=== PATIENT | male | born 1960 | race Caucasian/White ===

== ENCOUNTER 2018-11-19 05:22 | Inpatient (IN) | payer OTHER ==
[~2018-11-19] VITALS: Ht 182.9 cm; Wt 125.0 kg
[~2018-11-19 05:22] MED LIST: AMOX/K CLAV875 M1 PO; ASPIRIN EC81 MG PO; CIPRODEX1 ML AS; COUMADIN5 MG PO; DIGOXIN0.25 MG PO; HYDROCODONE/ACE1 TA7 PO; LANOXIN0.25 MG PO; LASIX 40 MG40 MG/TAB PO; LISINOPRIL10 MG PO; LOPRESSOR 550 MG/TAB PO; LORTAB 5 OR; LOVASTATIN20 M1 PO; METOPROL TAR25 MG PO; MICRO-K10 ME1 PO; MOTRIN400 MG PO; NAPROXEN250 MG PO; NO MEDS; PENICILLN VK500 MG OR; PERCOCET 5/321 COMBO PO; PERCOCET 5/325M1 TAB PO; ULTRAM50 M1 PO; VICOPROFEN OR; WARFARIN SODIUM5 MG PO; ZESTRIL/PRIN5 MG/TA1 PO; ZPAK PO
[2018-11-19] MEDS ORDERED: AMLODIPINE BESY10 MG PO (06:03)
[2018-11-19] MEDS ORDERED: GLIPIZIDE5 M2 PO (06:04)
[2018-11-19] MEDS ORDERED: LOSARTAN POTASS50 MG PO (06:05)
[2018-11-19] MEDS ORDERED: FLUOXETINE20 MG PO (06:05)
[2018-11-19] MEDS ORDERED: AMITRIPTYLIN25 MG PO (06:06)
[2018-11-19] MEDS ORDERED: ATORVASTATIN CA40 MG PO (06:07)
[2018-11-19] MEDS ORDERED: SG ASA LOW81 M1 PO (06:09)
[2018-11-19 06:11] LABS: HEMATOCRIT 49.5 % (39.0-50.0); HEMOGLOBIN 16.7 g/dl (14.0-18.0); IMMATURE GRANULOCYTES 0.3 % (0.0-5.0); MEAN CELL VOLUME 90.5 fL CALC (80.0-100.0); MEAN CORPUSCULAR HGB 30.5 pG CALC (26.0-32.0); MEAN CORPUSCULAR HGB CONC 33.7 g/L CALC (32.0-36.0); NEUT# 8.79 thou/uL (1.82-7.42); RED BLOOD COUNT 5.47 mill/uL (4.70-6.10); RED CELL DISTRI WIDTH 14.3 % (11.5-15.5)
[2018-11-19 06:11] LABS: URINE BILIRUBIN - DIPSTICK NEGATIVE (NEGATIVE); URINE BLOOD DIPSTICK TRACE-INTACT (NEGATIVE); URINE COLOR YELLOW; URINE GLUCOSE - DIPSTICK 500 mg/dL (NEGATIVE); URINE KETONE NEGATIVE (NEGATIVE); URINE LEUK ESTERASE NEGATIVE (NEGATIVE); URINE NITRITE - DIPSTICK NEGATIVE (Negative); URINE PH 5.5 (4.5-8.0); URINE PROTEIN - DIPSTICK 100 mg/dL (NEG-TRACE); URINE SPECIFIC GRAVITY >=1.030; URINE UROBILINOGEN - DIPSTICK 0.2 E.U./dL (0.2)
[2018-11-19] MEDS ORDERED: MV-ONE PO (06:11)
[2018-11-19 06:19] LABS: URINE BACTERIA FEW hpf; URINE EPITHELIAL CELLS MODERATE EPI/hpf (0-FEW); URINE MUCUS MODERATE hpf (NONE-FEW)
[2018-11-19 06:23] LABS: ALBUMIN 4.1 g/dL (3.2-5.0); AMYLASE 37 u/l (30-110); ANION GAP 17 (6-22 (CALC)); BILIRUBIN, TOTAL 0.7 mg/dL (0.0-1.4); BUN 7 mg/dL (9-20); BUN/CREATININE RATIO 13 (12-20 (CALC)); CARBON DIOXIDE 25 mmol/l (22-30); CHLORIDE 99 mmol/l (95-108); CREATININE 0.5 mg/dL (0.7-1.3); GFR > 60 ML/MIN (>=60 (CALC)); GFR FOR AFR.AMER. > 60 ML/MIN (>=60 (CALC)); LIPASE 89 u/l (23-300); POTASSIUM 3.9 mmol/l (3.5-5.1); SODIUM 136 mmol/l (137-146); TOTAL PROTEIN 7.7 g/dL (6.3-8.2)
[2018-11-19 06:25] LABS: ALKALINE PHOSPHATASE 136 u/l (38-126); SGOT/AST 60 u/l (17-59)
[2018-11-19 09:06] LABS: INTERNATIONAL NORMALIZED RATIO 1.3 RATIO (0.7-1.3)
[2018-11-19 10:05] VITALS: BP 121/81
[2018-11-19 15:11] VITALS: BP 128/80
[2018-11-19 18:49] VITALS: BP 127/31
[2018-11-19 20:50] VITALS: BP 90/50
[2018-11-19 22:10] VITALS: BP 153/84
[2018-11-20] VITALS: BP 144/84
[2018-11-20 04:00] VITALS: BP 119/63
[2018-11-20 07:53] VITALS: BP 135/84
[2018-11-20 11:05] VITALS: BP 101/69
[2018-11-20 12:28] LABS: INTERNATIONAL NORMALIZED RATIO 1.4 RATIO (0.7-1.3); PROTHROMBIN TIME 14.4 SECONDS (9.0-12.5)
[2018-11-20 15:35] VITALS: BP 123/93
[2018-11-20] MEDS ORDERED: WARFARIN7.5 MG PO (15:46)
[2018-11-20 20:27] VITALS: BP 118/74
[2018-11-21] VITALS (7 sets, daily range): BP systolic 86–118; BP diastolic 52–76
[2018-11-21 05:03] LABS: HEMATOCRIT 44.7 % (39.0-50.0); MEAN CELL VOLUME 92.7 fL CALC (80.0-100.0); MEAN CORPUSCULAR HGB 30.5 pG CALC (26.0-32.0); MEAN CORPUSCULAR HGB CONC 32.9 g/L CALC (32.0-36.0); RED BLOOD COUNT 4.82 mill/uL (4.70-6.10); RED CELL DISTRI WIDTH 14.6 % (11.5-15.5)
[2018-11-21 05:12] LABS: HEMOGLOBIN 14.7 g/dl (14.0-18.0)
[2018-11-21 05:21] LABS: INTERNATIONAL NORMALIZED RATIO 1.4 RATIO (0.7-1.3); PROTHROMBIN TIME 14.6 SECONDS (9.0-12.5)
[2018-11-21 05:29] LABS: ALKALINE PHOSPHATASE 115 u/l (38-126); ANION GAP 11 (6-22 (CALC)); BILIRUBIN, TOTAL 0.9 mg/dL (0.0-1.4); BUN 6 mg/dL (9-20); BUN/CREATININE RATIO 9 (12-20 (CALC)); CARBON DIOXIDE 27 mmol/l (22-30); CHLORIDE 101 mmol/l (95-108); CREATININE 0.6 mg/dL (0.7-1.3); GFR > 60 ML/MIN (>=60 (CALC)); GFR FOR AFR.AMER. > 60 ML/MIN (>=60 (CALC)); SGOT/AST 50 u/l (17-59); SODIUM 134 mmol/l (137-146)
[2018-11-21 05:34] LABS: TOTAL PROTEIN 6.1 g/dL (6.3-8.2)
[2018-11-22 04:24] VITALS: BP 104/66
[2018-11-22 05:45] LABS: INTERNATIONAL NORMALIZED RATIO 1.3 RATIO (0.7-1.3); PROTHROMBIN TIME 13.3 SECONDS (9.0-12.5)
[2018-11-22 07:55] VITALS: BP 134/84
[2018-11-22 11:16] VITALS: BP 121/85
== END 2018-11-22 14:10 | DRG 394 ==
LOC: ED 05:22 → ED-I 07:58 → ED 08:12 → MS2 08:13
PROVIDERS: Emergency Medicine; Family Medicine; Nurse Practitioner Family; ADMIT Internal Medicine; ATTEND Internal Medicine
DX: K43.0 Incisional hernia with obstruction, without gangrene (principal); I42.9 Cardiomyopathy, unspecified; E87.2 Acidosis; I48.1 Persistent atrial fibrillation; I11.0 Hypertensive heart disease with heart failure; I50.9 Heart failure, unspecified; E11.65 Type 2 diabetes mellitus with hyperglycemia; J44.9 Chronic obstructive pulmonary disease, unspecified; G47.30 Sleep apnea, unspecified; F17.220 Nicotine dependence, chewing tobacco, uncomplicated; T45.516A Underdosing of anticoagulants, initial encounter; Z91.19 Patient's noncompliance with other medical treatment and regimen; Z90.81 Acquired absence of spleen; Z90.49 Acquired absence of other specified parts of digestive tract; Z99.81 Dependence on supplemental oxygen; Z79.84 Long term (current) use of oral hypoglycemic drugs; Z91.128 Patient's intentional underdosing of medication regimen for other reason; Z79.01 Long term (current) use of anticoagulants
CPT/HCPCS: J1650; Q9967

== ENCOUNTER 2018-12-03 12:17 | Emergency (ER) | payer OTHER ==
[~2018-12-03] VITALS: Ht 182.9 cm; Wt 121.0 kg
[~2018-12-03 12:17] MED LIST changes: +AMITRIPTYLIN25 MG PO; +AMLODIPINE BESY10 MG PO; +ATORVASTATIN CA40 MG PO; +FLUOXETINE20 MG PO; +GLIPIZIDE5 M2 PO; +LOSARTAN POTASS50 MG PO; +MV-ONE PO; +SG ASA LOW81 M1 PO; +WARFARIN7.5 MG PO
[2018-12-03] MEDS ORDERED: ONDANSETRON HCL4 MG PO (13:59)
[2018-12-03] MEDS ORDERED: PERCOCET 5/325M1 TAB PO (13:59)
[2018-12-03] MEDS ORDERED: REGLAN10 MG PO (14:00)
[2018-12-03] MEDS ORDERED: PAIN & FEVER325 MG PO (14:02)
[2018-12-03] MEDS ORDERED: DOCUSATE SOD100 MG PO (14:04)
[2018-12-03] MEDS ORDERED: SENNA-TABS8.6 MG PO (14:05)
[2018-12-03 14:06] LABS: MEAN CELL VOLUME 93.9 fL CALC (80.0-100.0); MEAN CORPUSCULAR HGB 30.4 pG CALC (26.0-32.0); MEAN CORPUSCULAR HGB CONC 32.4 g/L CALC (32.0-36.0); NEUT# 10.17 thou/uL (1.82-7.42); RED BLOOD COUNT 3.78 mill/uL (4.70-6.10); RED CELL DISTRI WIDTH 14.6 % (11.5-15.5)
[2018-12-03] MEDS ORDERED: TRAMADOL HCL50 MG PO (14:06)
[2018-12-03 14:10] LABS: HEMATOCRIT 35.5 % (39.0-50.0); HEMOGLOBIN 11.5 g/dl (14.0-18.0)
[2018-12-03 14:18] LABS: ALBUMIN 3.3 g/dL (3.2-5.0); ALKALINE PHOSPHATASE 120 u/l (38-126); ANION GAP 13 (6-22 (CALC)); BILIRUBIN, TOTAL 0.6 mg/dL (0.0-1.4); BUN 12 mg/dL (9-20); BUN/CREATININE RATIO 19 (12-20 (CALC)); CARBON DIOXIDE 29 mmol/l (22-30); CHLORIDE 100 mmol/l (95-108); CREATININE 0.6 mg/dL (0.7-1.3); GFR > 60 ML/MIN (>=60 (CALC)); GFR FOR AFR.AMER. > 60 ML/MIN (>=60 (CALC)); LIPASE 297 u/l (23-300); POTASSIUM 4.4 mmol/l (3.5-5.1); SGOT/AST 33 u/l (17-59); SODIUM 138 mmol/l (137-146); TOTAL PROTEIN 6.7 g/dL (6.3-8.2)
[2018-12-03 15:00] LABS: URINE BLOOD DIPSTICK NEGATIVE (NEGATIVE); URINE COLOR YELLOW; URINE GLUCOSE - DIPSTICK NEGATIVE (NEGATIVE); URINE KETONE 40 mg/dL (NEGATIVE); URINE LEUK ESTERASE NEGATIVE (NEGATIVE); URINE NITRITE - DIPSTICK NEGATIVE (Negative); URINE PH 6.5 (4.5-8.0); URINE PROTEIN - DIPSTICK 30 mg/dL (NEG-TRACE); URINE SPECIFIC GRAVITY 1.025
[2018-12-03 15:04] LABS: URINE BILIRUBIN - DIPSTICK SMALL (NEGATIVE)
[2018-12-03 15:06] LABS: URINE MUCUS FEW hpf (NONE-FEW); URINE SQUAMOUS EPITHELIAL CELL FEW EPI/hpf (0-FEW)
[2018-12-03 16:42] VITALS: BP 126/78
== END 2018-12-03 16:50 | disposition home or self-care (01) ==
LOC: ED 12:17
PROVIDERS: Family Medicine
DX: G89.18 Other acute postprocedural pain (principal); I11.0 Hypertensive heart disease with heart failure; I50.9 Heart failure, unspecified; E11.9 Type 2 diabetes mellitus without complications; I25.10 Atherosclerotic heart disease of native coronary artery without angina pectoris; I25.2 Old myocardial infarction; I48.91 Unspecified atrial fibrillation; Z79.84 Long term (current) use of oral hypoglycemic drugs
CPT/HCPCS: Q9967

== ENCOUNTER 2018-12-06 05:03 | Inpatient (IN) | payer MEDICAID ==
[2018-12-06] VITALS (13 sets, daily range): BP systolic 92–137; BP diastolic 55–100
[~2018-12-06] VITALS: Ht 182.9 cm; Wt 115.6 kg
[~2018-12-06 05:03] MED LIST changes: +DOCUSATE SOD100 MG PO; +ONDANSETRON HCL4 MG PO; +PAIN & FEVER325 MG PO; +REGLAN10 MG PO; +SENNA-TABS8.6 MG PO; +TRAMADOL HCL50 MG PO
--- NOTE | 2018-12-06 05:08 | NUR ---
BY EMS TO ROOM.
[2018-12-06 05:56] LABS: HEMOGLOBIN 12.7 g/dl (14.0-18.0); IMMATURE GRANULOCYTES 0.6 % (0.0-5.0); MEAN CORPUSCULAR HGB 29.5 pG CALC (26.0-32.0); MEAN CORPUSCULAR HGB CONC 31.8 g/L CALC (32.0-36.0); NEUT# 11.81 thou/uL (1.82-7.42); RED BLOOD COUNT 4.3 mill/uL (4.70-6.10); RED CELL DISTRI WIDTH 15.2 % (11.5-15.5)
--- NOTE | 2018-12-06 06:00 | NUR ---
DISCUSSED PAIN ISSUES AND PLAN.
[2018-12-06 06:14] LABS: URINE COLOR DK. YELLOW
[2018-12-06 06:15] LABS: URINE GLUCOSE - DIPSTICK NEGATIVE (NEGATIVE)
[2018-12-06 06:16] LABS: URINE BILIRUBIN - DIPSTICK NEGATIVE (NEGATIVE); URINE KETONE Trace mg/dL (NEGATIVE); URINE SPECIFIC GRAVITY 1.025
[2018-12-06 06:17] LABS: URINE BLOOD DIPSTICK TRACE (NEGATIVE); URINE LEUK ESTERASE NEGATIVE (NEGATIVE); URINE NITRITE - DIPSTICK NEGATIVE (Negative); URINE PH 5 (4.5-8.0); URINE PROTEIN - DIPSTICK Trace mg/dL (NEG-TRACE); URINE UROBILINOGEN - DIPSTICK N E.U./dL (0.2)
[2018-12-06 06:20] LABS: ALKALINE PHOSPHATASE 138 u/l (38-126); AMYLASE 81 u/l (30-110); ANION GAP 19 (6-22 (CALC)); BILIRUBIN, TOTAL 0.8 mg/dL (0.0-1.4); BUN 16 mg/dL (9-20); BUN/CREATININE RATIO 23 (12-20 (CALC)); CARBON DIOXIDE 24 mmol/l (22-30); CHLORIDE 99 mmol/l (95-108); CREATININE 0.7 mg/dL (0.7-1.3); GFR > 60 ML/MIN (>=60 (CALC)); GFR FOR AFR.AMER. > 60 ML/MIN (>=60 (CALC)); LIPASE 488 u/l (23-300); POTASSIUM 4.8 mmol/l (3.5-5.1); SGOT/AST 34 u/l (17-59); SODIUM 138 mmol/l (137-146); TOTAL PROTEIN 7.4 g/dL (6.3-8.2)
--- NOTE | 2018-12-06 06:30 | NUR ---
CARDIZEM DRIP AT 10 MG/HR
[2018-12-06 06:31] LABS: ACT PARTIAL THROMBO TIME 26.8 SECONDS (20.0-32.5); INTERNATIONAL NORMALIZED RATIO 1.3 RATIO (0.7-1.3); PROTHROMBIN TIME 13.5 SECONDS (9.0-12.5)
--- NOTE | 2018-12-06 06:34 | NUR ---
CARDIZEM BOLUS FROM DRIP BAG GIVEN.
--- NOTE | 2018-12-06 06:57 | NUR ---
REPORT GIVEN TO BENJI MUELLER
--- NOTE | 2018-12-06 07:00 | NUR ---
SPOKE WITH PT , ALERT/ORIENTED X3, STATES HE HAS HAD AFIB FOR APPROX 4 YEARS AND HAS BEEN BATTLING WITH IT SINCE THEN, PT RECENTLY HAD ABDOMINAL SURGERY, 27 SUTURE APPROX 28 CM NO INFECTION NOTED. SOME NOTED REDNESS TO STAPLE LINE AREA. BOWEL SOUNDS HEARD, DR. MACEDO EXAMINING PT AT THIS TIME. PT STATES HE LIVES ALONE AND IS AFRAID TO STAY ON HIS OWN UNTIL HE FEELS BETTER. REQUESTING MORE PAIN MEDICATION. DR. MACEDO NOTIFIED OF REQUEST. VITAL SIGNS AT THIS TIME, ARE HEART RATE BOUNCING FROM 90-120, BLOOD PRESSURE 109/66, SATS 95%, CARDIZEM INFUSING AT 15 AT THIS TIME.
--- NOTE | 2018-12-06 08:05 | NUR ---
PT REQUESTING PAIN MEDICATION AGAIN. DR. MACEDO NOTIFIED. ORDERS RECEIVED. PT REMAINS STABLE, ALERT/ORIENTED X3, ASKING FOR PHONE TO CALL HIS FRIENDS AND LET THEM KNOW HE IS IN HOSPITAL. WARM BLANKET GIVEN PER REQUEST.
--- NOTE | 2018-12-06 08:40 | NUR ---
ADVISED PT OF ADMISSION, PT RESTING QUIETLY LIGHTS TURNED OFF PER PT REQUEST. SIDE RAILS UP, CALL LIGHT WITHIN REACH
--- NOTE | 2018-12-06 09:30 | NUR ---
PT RESTING QUIETLY ON STRETCHER, VITAL SIGNS STABLE
--- NOTE | 2018-12-06 10:00 | NUR ---
REPORT CALLED TO ICU FOR CONTINUATION OF CARE. ADVISED OF BUSY ER STATUS AND WOULD BRING PT UP SOON POSSIBLE
--- NOTE | 2018-12-06 10:20 | NUR ---
PT TRANSFERRED TO ICU PER STRETCHER, WITH MONITER AND CARDIZEM DRIP
--- NOTE | 2018-12-06 10:25 | NUR ---
PT TO ICU BED 7 VIA STRETCHER ACCOMPNIED BY ER NURSE. PT ADMITTED FOR AFIB WITH RVR. PT IS AFIB WITH RVR ON MONITOR RATE 120-140. PT ABLE TO TRANSFER SELF TO BED WITH MINIMAL ASSISTANCE. ADMISSION ASSESSMENT COMPLETED AT THIS TIME. IV PATENT X2. ORIENTED PATIENT TO ROOM AND UNIT AND CALL LIGHT SYSTEM. PT VERBALIZED UNDERSTANDING. CALL LIGHT IN REACH. WILL CONTINUE TO MONITOR.
--- NOTE | 2018-12-06 10:55 | NUR ---
DR KELLOGG NOTIFIED OF CONSULT
--- NOTE | 2018-12-06 11:40 | NUR ---
NG TUBE PLACED AT THIS TIME. IMMEADIATE RETURN OF YELLOWISH BROWN LIQUID >1000CC.
--- NOTE | 2018-12-06 11:50 | NUR ---
LAB AT BEDSIDE TO DRAW TROPONIN AT THIS TIME
--- NOTE | 2018-12-06 11:55 | NUR ---
DR KELLOGG CALLED FOR PAIN MEDICATION ORDERS.
--- NOTE | 2018-12-06 12:00 | NUR ---
PORTABLE XR @BEDSIDE TO VERIFY NGT PLACEMENT.
--- NOTE | 2018-12-06 12:32 | NUR ---
PT RESTING IN BED VISITING WITH FAMILY AT BEDSIDE WILL CONTINUE TO MONITOR.
--- NOTE | 2018-12-06 12:40 | NUR ---
DR KELLOGG AT BEDSIDE AT THIS TIME
--- NOTE | 2018-12-06 12:49 | NUR ---
DR DOSHI AT BEDSIDE AT THIS TIME
--- NOTE | 2018-12-06 13:20 | NUR ---
PT TO RADIOLOGY VIA STRETCHER FOR US GUIDED BIOPSY.
--- NOTE | 2018-12-06 13:30 | NUR ---
WHILE IN RADIOLOGY TITRATED CARDIZEM PER TITRATION CHARTING. HEART RATE 60S-80S. UNABLE TO OBTAIN BP DUE TO MONITOR IN RADIOLOGY.
--- NOTE | 2018-12-06 14:15 | NUR ---
pt returned from radiology, placed back on room monitor, o2, & lis for ngt. callbell w/in reach. pt sitting up in bed, watching tv. no needs/concerns at this time.
--- NOTE | 2018-12-06 14:21 | NUR ---
PER DR DOSHI, HOLD NEXT BAG OF CARDIZEM; AFIB HR 70-80'S, BP 101/74. CARDIZEM COMPLETED ON EMAR. PT TALKING ON PERSONAL CELL. NO S/S OF DISTRESS AT THIS TIME.
--- NOTE | 2018-12-06 15:53 | NUR ---
PT RESTING IN BED TALKING ON PHONE. RESP ARE EVEN AND UNLABORED. NO DISTRESS NOTED. CALL LIGHT IN REACH. WILL CONTINUE TO MONITOR.
--- NOTE | 2018-12-06 18:03 | NUR ---
PT RESTING IN BED TALKING ON PHONE. RESP ARE EVEN AND UNLABORED. NO DISTRESS NOTED. CALL LIGHT IN REACH. WILL CONTINUE TO MONITOR.
--- NOTE | 2018-12-06 18:33 | NUR ---
lab at bedside at this time
--- NOTE | 2018-12-06 18:50 | NUR ---
ROUNDED ON PATIENT WITH DAYSHIFT NURSE, PATIENT HAS VISITOR AT BEDSIDE. NO ACUTE DISTRESS SHOWN, CONVERSATES AND JOKES WITH VISITOR AND NURSE TITLE I INSTRUCTIONAL ASSISTANT. ON 2L/MIN NC, SATS 98%, NO SOB NOTED. NG TUBE INTACT ON R-NARE AT LIS, GREEM DRAINAGE NOTED. NO COMPLAINTS OF PAIN. NO NEEDS AT THIS TIME. AFIB- CONTROLLED HR 70'S-90'S WITH OCCASIONAL PVC'S.CALL LIGHT WITHIN REACH. WILL CONTINUE TO MONITOR.
--- NOTE | 2018-12-06 19:35 | NUR ---
PATIENT WITH HOB 45 DEGREES, SITTING UP ON SIDE OF BED TO USE URINAL, VOIDS YELLOW AND CLEAR URINE. HEART RATE DOES INCREASE WITH ACTIVITY BUT SOON HE LAYS BACK DOWN HIS HEART RATE DECREASES TO NORMAL RANGES. PATIENT ALERT AND ORIENTED X4. HEAD TO TOE NURSING ASSESSMENT COMPLETED, SEE CHARTING. RAC 18 G IV INTACT AND NS AT 100 ML/HR INFUSING PROPERLY, R-H 22G INTACT AND FLUSHES PROPERLY. AFEBRILE. NO SOB NOTED. POC FOR TONIGHT DISCUSSED. CALL LIGHT WITHIN REACH. WILL CONTINUE TO MONITOR.
--- NOTE | 2018-12-06 20:39 | NUR ---
PATIENT GIVEN PAIN MEDICATION PER REQUEST, PAIN LEVEL 8, EDUCATED ON PAIN MEDICATION. CALL LIGHT WITHIN REACH. WILL CONTINUE TO MONITOR.
--- NOTE | 2018-12-06 22:00 | NUR ---
PATIENT ON HIS PHONE WATCHING VIDEOS. NO ACUTE DISTRESS NOTED, HOB ABOUT 45 DEGREES. NO NEEDS AT THIS TIOME. WILL CONTINUE TO MONITOR.
--- NOTE | 2018-12-06 23:23 | NUR ---
PATIENT STANDS AT SIDE OF BED TO USE URINAL, NO DIFFICULTY NOTED. DOES BECOME SOB WITH EXERTION. HEART RATE INCREASES WITH ACTIVITY.
[2018-12-07] VITALS (14 sets, daily range): BP systolic 92–136; BP diastolic 55–80
--- NOTE | 2018-12-07 00:09 | NUR ---
PAIN MEDICATION GIVEN PER REQUEST, PATIENT REPORTS HE IS IN "CONSTANT PAIN" BUT PAIN MEDICINE DOES HELP HIM. PATIENT HOB ABOUT 30 DEGREES. R NARE NG TUBEN INTACT, DRAINS GREEN DRAINAGE AT LIS. HR 94 BPR AFIB. SATS 95 % ON 2L/MIN NC, BLOOD SUGAR WAS CHECKED AND 94 MG/DL. CALL LIGHT WITHIN REACH WILL CONTINUE TO MONITOR.
--- NOTE | 2018-12-07 02:20 | NUR ---
PATIENT REQUESTED PAIN MEDICATION. PATIENT WAS ASSISTED WITH REPOSITIONING TO HELP MAKE COMFORTABLE. NG HAS DRAINED 1050 ML OUT, GREEN DRAINAGE OBSERVED. CALL LIGHT WITHIN REACH.
--- NOTE | 2018-12-07 03:22 | NUR ---
PATIENT UP TO USE URINAL, NO GAIT DIFFICULTY NOTED. PATIENT'S HR DOES INCREASE WITH ACTIVITY, ESPECIALLY WHEN HE STANDS UP. NO COMPLAINTS OF PAIN, NG ADHESIVE WAS CHANGED DUE TO IT COMING OFF OF NOSE, REINFORCED WITH TAPE WELL. REMAINS ON LIS. CALL LIGHT WITHIN REACH. WILL CONTINUE TO MONITOR.
--- NOTE | 2018-12-07 04:15 | NUR ---
PATIENT LAYS WITH HOB ABOUT 30 DEGREES, RESTS WITH EYES CLOSED, AROUSES EASILY WITH VERBAL STIMULI. NO ACUTE DISTRESS NOTED. NO NEEDS AT THIS TIME. NO COMPLAINTS OF PAIN. CALL LIGHT WITHIN REACH. WILL CONTINUE TO MONITOR.
[2018-12-07 04:56] LABS: HEMATOCRIT 36.3 % (39.0-50.0); HEMOGLOBIN 11.6 g/dl (14.0-18.0); MEAN CELL VOLUME 94.8 fL CALC (80.0-100.0); MEAN CORPUSCULAR HGB 30.3 pG CALC (26.0-32.0); RED BLOOD COUNT 3.83 mill/uL (4.70-6.10); RED CELL DISTRI WIDTH 15.2 % (11.5-15.5)
[2018-12-07 05:19] LABS: ALBUMIN 3.3 g/dL (3.2-5.0); ALKALINE PHOSPHATASE 105 u/l (38-126); ANION GAP 13 (6-22 (CALC)); BILIRUBIN, TOTAL 0.6 mg/dL (0.0-1.4); BUN 13 mg/dL (9-20); BUN/CREATININE RATIO 21 (12-20 (CALC)); CARBON DIOXIDE 26 mmol/l (22-30); CHLORIDE 103 mmol/l (95-108); CREATININE 0.6 mg/dL (0.7-1.3); GFR > 60 ML/MIN (>=60 (CALC)); GFR FOR AFR.AMER. > 60 ML/MIN (>=60 (CALC)); POTASSIUM 4.2 mmol/l (3.5-5.1); SGOT/AST 32 u/l (17-59); SODIUM 138 mmol/l (137-146); TOTAL PROTEIN 6.5 g/dL (6.3-8.2)
--- NOTE | 2018-12-07 05:23 | NUR ---
PAIN MEDICATION GIVEN PER REQUEST. METOPROLOL IV PRN GIVEN FOR HEART RATE SUSTAINING IN THE 100'S. AFIB WITH OCC. PVC'S ON TELEMETRY. CALL LIGHT WITHIN REACH. WILL CONTINUE TO MONITOR.
--- NOTE | 2018-12-07 06:15 | NUR ---
PATIENT LAYS WITH HOB NEAR 30 DEGREES, WATCHES TV. R-NARE NG TUBE INTACT AT LIS. SATS 97% AT 2L/MIN NC. HR 70'S TO 80'S AFIB WITH OCC PVC'S. AFEBRILE. NO NEEDS AT THIS TIME. IV'S INTACT. CALL LIGHT WITHIN REACH. WILL CONTINUE TO MONITOR.
--- NOTE | 2018-12-07 06:45 | NUR ---
RECIEVED REPORT FROM BENJI DC. ASSUMED PT CARE.
--- NOTE | 2018-12-07 07:30 | NUR ---
PT SITTING UP IN BED, PT A&OX4, ABLE TO MAKE NEEDS KNOWN. PT REMAINS AFIB ON TELEMETRY HR 126, PT DENIES CP OR PALPITATIONS AT THIS TIME. ABDOMEN HARD, DISTENDED, 26 FRANKLYN APROXIMATED & INTACT, REDNESS NOTED. PT STATED THEY ITCH, ENCOURAGED NOT TO SCRATCH AT INCISION LINE. PT NOTED WITH SNUFF IN BED AND IN MOUTH, EDUCATED ABOUT THE EFFECT OF TOBACCO AND ENCOURAGED NOT TO WHILE HERE, PT STATED HE WOULD CONTINUE AND KNOWS THE RISKS. NG TUBE TO R NARE INTACT AND DRAINING GREEN/YELLOW TO BSD, BSX4 FAINT, HYPOACTIVE. AFEBRILE. URINAL AT BS WITH 150 DARK YELLOW URINE OP. PT MEDICATED PER REQUEST FOR PAIN AT ABDOMEN 8-11/07.BS 100. PT ENCOURAGE TO NOTIFY RN WITH ANY S/S OF HYPOGLYCEMIA. 18G TO RAC INFUSING NS@100ML/HR, 22G TO RH/SL, FLUSH WITHOUT DIFFICULTY. CALL LIGHT IN REACH. WILL MONITOR.
--- NOTE | 2018-12-07 09:15 | NUR ---
PT RESTING IN BED WITH EYES CLOSED, FOUND WITH NG TUBE UNSECURED, NG TUBE RESECURED, PLACEMENT VERIFIED VIA AUSCULTATION, FURTHER SECURED IN 2ND SPOT TUBING TO THE GOWN. PT STATED HE DIDNT EVEN RELIZE HE HAD PULLED IT. NG TUBE DRAINING TO BSD CONTINUES.
--- NOTE | 2018-12-07 09:27 | NUR ---
SATHISH DOSHI AT BEDSIDE FOR ASSESSMENT AND TO DISCUSS PLAN OF CARE. NEW ORDERS RECIEVE. WILL MONITOR.
--- NOTE | 2018-12-07 09:50 | NUR ---
DR. KELLOGG AT BEDSIDE FOR ASSESSMENT AND TO DISCUSS PLAN OF CARE.
--- NOTE | 2018-12-07 10:10 | NUR ---
PT TRANSPORTED TO RADIOLOGY VIA FOR SMALL BOWEL SERIES, PT TOLERATED TRANSFER WELL.JUAN FRANCISCO/XRAY TO CALL WHEN STUDY COMPLETE.
--- NOTE | 2018-12-07 11:37 | NUR ---
PT BACK FROM XRAY, MEDICATED PER PT REQUEST FOR PAIN 10/07. ALL MONITORS ON, WILL MONITOR. PT NG TUBE CAME DISLODGED. DR. DOSHI NOTIFIED. PT STILL HAS A SERIES OF PHOTOS REMAINING, XRAY TO CALL BACK FOR HIM IN 1 HOUR PER JUAN FRANCISCO.
--- NOTE | 2018-12-07 12:27 | NUR ---
PT OFF UNIT FOR NEXT SERIES OF XRAYS.
--- NOTE | 2018-12-07 12:45 | NUR ---
PT BACK FROM XRAY
--- NOTE | 2018-12-07 13:22 | NUR ---
PT ASSISTED WITH URINAL, VOIDED 100ML DARK YELLOW URINE.
--- NOTE | 2018-12-07 13:34 | NUR ---
PT OFF UNIT FOR XRAY VIA .
--- NOTE | 2018-12-07 14:00 | NUR ---
PT BACK FROM XRAY, MEDICATED FOR ABDOMINAL PAIN 10/07. WILL MONITOR.
--- NOTE | 2018-12-07 15:00 | NUR ---
DR. DOSHI AT BEDSIDE. TOLD OF PT AFIB, WITH MOVEMENT HR 99-160. B/P 97/70. TOLD TO HOLD LOPRESSOR IV FOR NOW AND HOLD OFF ON PLACING A NEW NG TUBE LONG PT NPO AND NOT N/V. NOTIFY HIM WITH PENDING RESULTS OF XRAY SERIES. PT AWARE OF CHANGE. WILL MONITOR.
--- NOTE | 2018-12-07 16:48 | NUR ---
PT ASSISTED WITH COMPLETE BATH, LINEN CHANGE AND MOUTH CARE DONE. PT SITTING UP IN RECLINER NOW WATCHING TV, TALKING ON PERSONAL CELL PHONE. PT TOLERATED WELL. XRAY RESULT PENDING.
--- NOTE | 2018-12-07 16:51 | NUR ---
CALLED XRAY TO GET UPDATE ON PENDING RESULTS, TOLD PT HAS ANOTHER PICTURE DUE AT 5PM. PT MADE AWARE.
--- NOTE | 2018-12-07 17:15 | NUR ---
NOTIFIED DR. DOSHI OF PT RUN OF VTA ON TELEMETRY, PT ASYMPTOMATIC, TALKING AND JOKING WITH STAFF, RESPIRATIONS EVEN/UNLABORED .B/P 94/81, HR RANGING FROM 99-161. PT DENIES CP, PALPITATIONS, OR DISTRESS AT THIS TIME. NEW ORDERS RECIEVED. LABS DRAWN AT BEDSIDE.
--- NOTE | 2018-12-07 17:45 | NUR ---
PT OFF UNIT FOR XRAY. PT TOLERATED TRANSFER AND XRAY WELL
--- NOTE | 2018-12-07 17:55 | NUR ---
PT BACK ON UNIT, ASSISTED TO BSC. M SOFT BROWN BM, VOIDED APPROX 350 DARK YELLOW URINE. THEN ASSISTED BACK TO BED. CALL LIGHT IN REACH. WILL MONITOR.
--- NOTE | 2018-12-07 18:19 | NUR ---
PT MEDICATED PER REQUEST FOR ABDOMEN PAIN 10/07.
--- NOTE | 2018-12-07 18:43 | NUR ---
NOTIFIED DR. DOSHI OF PT Mg+ & K+ LEVELS, PT CONTINUES WITH MULTIPLE EPISODES OF ASYMPTOMATIC VTACH, COUPLETS, TACHY ON TELEMETRY. B/P 120/76, RESPIRATIONS EVEN/UNLABORED. PT REMAINS A&OX4, ABLE TO MAKE NEEDS KNOWN. WILL CONTINUE TO MONITOR.
--- NOTE | 2018-12-07 18:59 | NUR ---
PER DR. DOSHI, GIVE METROPOLOL 5MG IV ORDERED FOR SBP>100.
--- NOTE | 2018-12-07 19:00 | NUR ---
RECEIVED REPORT FROM AM NURSE. PATIENT CURRENTLY IN BED. PATIENT WITH NO SIGNS OF DISTRESS.PATIENTS HEART RATE ELEVATED. WILL ADMINISTER PRN MEDICATIONS. PATIENT WITH COMPLAINTS OF PAIN- PATIENT RECENTLY MEDICATED. WILL CONTINUE TO MONITOR PATIENT.
--- NOTE | 2018-12-07 20:00 | NUR ---
assisted patient to bsc. patient had 2 loose bowel movements. patients heart rate remains elevated. blood pressure stable. pt continue with complaints of pain. will continue to monitor.
--- NOTE | 2018-12-07 21:21 | NUR ---
PLACED A CALL TO TO NOTIFY OF SMALL BOWEL SERIES RESULTS. NO OBSTRUCTION PER IMPRESSION. DID MENTION THAT PATIENT HAS HAD TWO LOOSE BOWEL MOVEMENTS. ALSO ASKED IF PATIENT WAS TO REMAIN NPO. HE STATED YES PATIENT IS STILL NPO AND NO ADDITIONAL ORDERS RECEIVED. PATIENT IN BED RESTING. WILL CONTINUE TO MONITOR.
--- NOTE | 2018-12-07 21:48 | NUR ---
SPOKE TO DR. DOSHI TO NOTIFY HIM THAT PATIENT HEART RATE REMAINED ELEVATED. PTS HEART RATE BETWEEN 115-130 AT REST AND UP TO 160'S WITH ACTIVITY. I NOTIFIED HIM OF PATIENTS SMALL BOWEL RESULTS AND THAT I SPOKE WITH DR. KELLOGG, WHO GAVE NO NEW ORDERS AND STATED TO KEEP PT NPO. DR. DOSHI STATED TO START HOME DOSE OF LOPRESSOR. WILL CONTINUE TO MONITOR.
--- NOTE | 2018-12-07 22:00 | NUR ---
PATIENT ASSISTED TO BEDSIDE COMMODE. PATIENT HAD ANOTHER LOOSE STOOL. PATIENT WAS ALSO INCONTINENT OF STOOL. PATIENTS LINENS CHANGED AND PATIENT GIVEN BRIEF. PATIENTS BLOOD PRESSURE STABLE. HEART RATE CONTINUES TO FLUCTUATE CURRENTLY 120'S. PATIENT CONTINUES TO COMPLAIN OF PAIN. PATIENT MEDICATED. PATIENT WITH NO SIGNS OF DISTRESS. WILL CONTINUE TO MONITOR.
[2018-12-08] VITALS (12 sets, daily range): BP systolic 95–118; BP diastolic 65–81
--- NOTE | 2018-12-08 | NUR ---
PATIENT ASSISTED TO BEDSIDE COMMODE. PATIENT HAD ANOTHER LOOSE STOOL, SMALL. PATIENT WITH COMPLAINTS OF PAIN. VITALS STABLE. HEART RATE CONTINUES TO FLUCTUATE. INCREASE WITH ACTIVITY. PATIENT MEDICATED. WILL CONTINUE TO MONITOR PATIENT.
--- NOTE | 2018-12-08 02:00 | NUR ---
PATIENTS VITALS STABLE. PATIENT HEART RATE STILL >100. PATIENT VERY RESTLESS. PATIENT IS ENCOURAGED TO SLEEP BUT STATES HE GOING TO WAIT FOR PAIN MEDICATION. PATIENT REQUESTING WATER. PATIENT CURRENTLY NPO. BLOOD PRESSURE MAINTAINING. WILL CONTINUE TO MONITOR PATIENT.
--- NOTE | 2018-12-08 03:00 | NUR ---
PATIENTS HEART RATE ELEVATED. PRN LOPRESSOR GIVEN. PATIENTS BLOOD PRESSURE 110/73. PATIENT HAS NOT SLEPT. WILL CONTINUE TO MONITOR.
--- NOTE | 2018-12-08 04:30 | NUR ---
PATIENT ASSISTED TO BEDSIDE COMMOND, PATIENT HAD ANOTHER LOOSE BOWEL MOVEMENT. PATIENTS HR IMPROVING. 80-100. PATIENT CONTINUES TO COMPLAIN OF PAIN IN HIS STOMACH WHEN TURNING. WILL MEDICATE PATIENT. WILL CONTINUE TO MONITOR.
[2018-12-08 04:48] LABS: HEMATOCRIT 37.7 % (39.0-50.0); HEMOGLOBIN 11.8 g/dl (14.0-18.0); MEAN CELL VOLUME 95.4 fL CALC (80.0-100.0); MEAN CORPUSCULAR HGB 29.9 pG CALC (26.0-32.0); MEAN CORPUSCULAR HGB CONC 31.3 g/L CALC (32.0-36.0); RED BLOOD COUNT 3.95 mill/uL (4.70-6.10); RED CELL DISTRI WIDTH 15.4 % (11.5-15.5)
[2018-12-08 05:01] LABS: ALBUMIN 3.4 g/dL (3.2-5.0); ALKALINE PHOSPHATASE 118 u/l (38-126); ANION GAP 14 (6-22 (CALC)); BILIRUBIN, TOTAL 0.6 mg/dL (0.0-1.4); BUN 18 mg/dL (9-20); BUN/CREATININE RATIO 22 (12-20 (CALC)); CARBON DIOXIDE 28 mmol/l (22-30); CHLORIDE 106 mmol/l (95-108); CREATININE 0.8 mg/dL (0.7-1.3); GFR > 60 ML/MIN (>=60 (CALC)); GFR FOR AFR.AMER. > 60 ML/MIN (>=60 (CALC)); MAGNESIUM 2.5 mg/dL (1.6-2.3); SGOT/AST 32 u/l (17-59); SODIUM 144 mmol/l (137-146); TOTAL PROTEIN 6.7 g/dL (6.3-8.2)
[2018-12-08 05:22] LABS: C. DIFFICILE TOXIN A&B NEGATIVE (NEGATIVE)
--- NOTE | 2018-12-08 06:04 | NUR ---
PATIENT DID NOT SLEEP. PT VERY RESTLESS AND HAD MULTIPLE LOOSE BOWEL MOVEMENTS. VITALS STABLE. NASAL CANNULA IN PLACE. PATIENT CONTINUES TO COMPLAIN OF PAIN- PATIENT MEDICATED. BSC NEXT TO BEDSIDE. NO SIGNS OF DISTRESS. FLUIDS INFUSING. WILL CONTINUE TO MONITOR PATIENT.
--- NOTE | 2018-12-08 06:28 | NUR ---
THROUGHOUT NIGHT PATIENT WAS ENCOURAGE TO USE URINAL. PATIENT STATED THAT HE IS NOT ABLE TO USE URINAL BECAUSE WHEN HE GETS THE SENSATION TO HAVE A BM HE ALSO URINATES. PATIENT URINATED MULTIPLE TIMES IN BSC. UNABLE TO PROPERLY MEASURE URINE.
--- NOTE | 2018-12-08 06:45 | NUR ---
RECIEVED REPORT FROM RN, ASSUMED PT CARE.
--- NOTE | 2018-12-08 07:28 | NUR ---
PT RESTING IN BED, CONTINUES TO BE RESTLESS, ASKING FOR PAIN MEDICATION. PT REMAINS NPO, AFIB WITH PVC'S ON TELEMETRY, HR 98. PT ASSISTED TO THE BSC, SM BROWN LOOSE BM NOTED. PT A&OX4, ABLE TO MAKE NEEDS KNOWN. PT REMINDED AGAIN TO USE CALL LIGHT FOR ASSISTANCE, HE CONTINUES TO GET UP TO BSC WITHOUT CALLING STAFF OR YELLING OUT. MIDLINE FRANKLYN APPROXIMATED AND INTACT, RED, NO DRAINAGE NOTED. ABDOMEN DISTENDED AND FIRM, BSX4 HYPOACTIVE.ASSESSMENT COMPLETED, CALL LIGHT IN REACH. WILL MONITOR.
--- NOTE | 2018-12-08 07:57 | NUR ---
CALLED TO ROOM VERBALLY BY PT TO SEE HIM GETTING OUT OF BED, PT FOUND WITH DISLODGED IV TO RH, PT EDUCATED ON SAFETY CONCERNS, PT NOTED WITH SNOFF ON CHEST AND LIPS, PT EDUCATED ON EFFECTS OF TOBACCO, PT DENIES USING AND STATED HE WILL STAY IN BED AND UTILIZE CALL LIGHT. FRIEND ARRIVED AT BEDSIDE.
--- NOTE | 2018-12-08 08:10 | NUR ---
DR. DOSHI AT BEDSIDE FOR ASSESSMENT AND TO DISCUSS PLAN OF CARE. NEW ORDERS RECIEVED.
--- NOTE | 2018-12-08 08:30 | NUR ---
CALLED DR KELLOGG AT REQUEST TO UPDATE ON PT STATUS, DR. KELLOGG IN SURGERY, LEFT MESSAGE WITH JOYA AT OFFICE.
--- NOTE | 2018-12-08 08:49 | NUR ---
UPON ENTERING PT ROOM TO GIVE SCHEDULED MEDICATION, PT NOTED WITH SNUFF AGAIN IN HIS MOUTH. PT ASKED IF HE HAD SNUFF IN HIS MOUTH, HE STATED YES, ASKED PT IF HE WAS SWALLOWING TOBACCO, PT STARTED TO DENY, THEN STATED YES THAT HE DOES IN FACT SWALLOW THE TOBACCO. PT EDUCATED ON THE RISKS AND HOW IS ASSOCIATES TO HIS CURRENT CONDITION. PT THEN SPIT OUT TOBACCO, RINSED HIS MOUTH AND HANDED HIS SNUFF TO RN AND ASKED THAT IT BE THROWN AWAY. CALL LIGHT IN REACH, WILL MONITOR. DR. DOSHI NOTIFIED AND MADE AWARE.
--- NOTE | 2018-12-08 09:58 | NUR ---
dr. herrera called, new orders recieved. pt medicated per request for pain10/07. pt assisted to bsc, elaine srivastava. call light in reach. will monitor.
--- NOTE | 2018-12-08 10:35 | NUR ---
report given to breanna miller. pt transported via w/c to ms room 291. pt tolerated transfer well.
--- NOTE | 2018-12-08 12:00 | NUR ---
PT ARRIVES TO ROOM 291, ALERT AND ORIENTED X 3. LUNGS ARE CLEAR BUT DIMINISHED THROUGHOUT, 2 TRAILER TRUCK DRIVER BY NC PRN. ABDOMEN SEEN TO HAVE VERTICAL FRANKLYN, PT HAS HAD DIARRHEA X 2 TODAY. PT TOLERATING FULL LIQUID DIET WELL. PAIN MED PROVIDED REQUESTED, 09/06. HR IRREGULAR IN AFIB, DOES ACCELERATE WITH ACTIVITY, PROMPTING CALLS FROM ER, RATE 130s.
[2018-12-08] MEDS ORDERED: WARFARIN7.5 MG PO (12:28)
[2018-12-08] MEDS ORDERED: WARFARIN5 MG PO (12:29)
--- NOTE | 2018-12-08 15:10 | NUR ---
EVERY OTHER STAPLE REMOVED PER PHYSICIAN ORDER, WELL TOLERATED BY PT.
--- NOTE | 2018-12-08 17:48 | NUR ---
PT HAS BEEN HAVING HALLUCINATIONS THIS AFTERNOON. HE IS TALKING TO HIMSELF, SAYING THAT HE NEEDS TO GO TO A MEETING TONIGHT REGARDING THE KIDS IN THE NEIGHBORHOOD. HE IS EASILY REORIENTED, BUT EVENTUALLY HE DISORIENTS.
--- NOTE | 2018-12-08 18:45 | NUR ---
PT SOUNDED BED ALARM. UPON ENTERING ROOM PT HAD OVEN LOADER REMOVED, GOWN OFF AND IV SITE OUT. PT STATES HE IS GOING HOME AND THAT HE NEEDS TO GET OUT OF HERE. PRESSURE BANDAGE APPLIED TO DISCONTINUED IV SITE. PT REORIENTED AT THIS TIME. PT NOW ORIENTED X4. BS 94. NEGATIVE NEURO ASSESSMENT. VS WNL. OVEN LOADER REAPPLIED. X2 FAILED IV ATTEMPTS BY OFF GOING NURSE BRANDON. LEAF SUCKER OPERATOR NOTIFIED AT THIS TIME FOR NEW IV START. DISCUSSED POC AND SAFETY PRECAUTIONS. BED ALARM FOR SAFETY AND CALL LIGHT WITHIN REACH. WILL CONTINUE TO MONITOR.
--- NOTE | 2018-12-08 20:02 | NUR ---
DESOLDERER PHYSICIAN DR. CESPEDES NOTIFIED VIA TELEPHONE OF MULTIPLE FAILED ATTEMPTS OF OBTAINING IV ACCESS. ORDERS TO START IV IN FOOT GIVEN AT THIS TIME. #22G STARTED IN RIGHT FOOT X2 ATTEMPTS BY ER NURSE AND TIRE REPAIRMAN. PT TOLERATED WELL. EDUCATION PROVIDED AT THIS TIME. PT VERBALIZED UNDERSTANDING.
[2018-12-09] VITALS (7 sets, daily range): BP systolic 102–123; BP diastolic 66–88
--- NOTE | 2018-12-09 00:04 | NUR ---
PT UP TO BEDSIDE TO VOID IN URINAL. PT DISORIENTED ASKING "WHERE AM I, WHAT ARE THESE WIRES FOR". PT REORIENTED TO TIME AND PLACE. VS OBTAINED 123/74, 88, 20, 94% RA. PT C/O FEELING NAUSEATED AND JUST NOT FEELING RIGHT. ACCUCHECK 95. ASSISTED PT BACK INTO BED. NEURO ASSESSMENT COMPLETED NO APPARENT DEFICITS NOTED. PT NOW ALERT AND ORIENTED X4. TURNED TV ON AT THIS TIME, CALL LIGHT WITHIN REACH. BED ALARM FOR SAFETY. WILL CONTINUE TO MONITOR.
--- NOTE | 2018-12-09 03:05 | NUR ---
PT UP AT BEDSIDE TO USE URINAL. PT VOIDED WITHOUT DIFFICULTY. PT STATES " I DON'T FEEL RIGHT" VS OBTAINED. QC LAB TECHNICIAN IN PLACE. ER CALLED TO REPORT HR 140S. ASSISTED PT BACK IN BED. IV SITE APPEARS HEALTHY. RETURN CALL TO ER PT HR GOING BACK DOWN. REGIONAL ACCOUNT DIRECTOR QUESTIONED PT ABOUT TOBACCO IN BED AND ON CHEST, PT DENIES USING TOBACCO AT THIS TIME. EDUCATION PROVIDED. CALL LIGHT WITHIN REACH AND BED ALARM FOR SAFETY. WILL CONTINUE TO MONITOR.
[2018-12-09 05:43] LABS: MEAN CELL VOLUME 95.2 fL CALC (80.0-100.0); MEAN CORPUSCULAR HGB 30.1 pG CALC (26.0-32.0); MEAN CORPUSCULAR HGB CONC 31.6 g/L CALC (32.0-36.0); RED BLOOD COUNT 3.99 mill/uL (4.70-6.10); RED CELL DISTRI WIDTH 15.3 % (11.5-15.5)
[2018-12-09 05:50] LABS: INTERNATIONAL NORMALIZED RATIO 1.1 RATIO (0.7-1.3); PROTHROMBIN TIME 11.6 SECONDS (9.0-12.5)
[2018-12-09 05:54] LABS: ANION GAP 11 (6-22 (CALC)); BUN 13 mg/dL (9-20); BUN/CREATININE RATIO 19 (12-20 (CALC)); CARBON DIOXIDE 29 mmol/l (22-30); CHLORIDE 104 mmol/l (95-108); CREATININE 0.7 mg/dL (0.7-1.3); GFR > 60 ML/MIN (>=60 (CALC)); GFR FOR AFR.AMER. > 60 ML/MIN (>=60 (CALC)); POTASSIUM 4.1 mmol/l (3.5-5.1); SODIUM 140 mmol/l (137-146)
--- NOTE | 2018-12-09 05:58 | NUR ---
REGISTERED SAFETY ENGINEER IN ROOM TO START 6AM IV ABT. SAT UP IN BED STATING HE WAS GOING TO VOMIT. EMS[facility] BAG PROVIDED AT THIS TIME. PT VOMITED SMALL AMOUNT OF YELLOW BILE. PT DENIES ANY FURTHER NAUSEA. EMS[facility] BAG LEFT WITH PT AND ENCOURAGED PT TO CALL IF NAUSEA OR VOMITING RETURNED.
--- NOTE | 2018-12-09 06:12 | NUR ---
ASSISTED PT TO BSC. PT VOIDED ON FLOOR AND HAD 100ML LIQUID BROWN STOOL. ASSISTED PT BACK TO BED. DENIES ANY NAUSEA. CALL LIGHT WITHIN REACH AND BED ALARM FOR SAFETY. WILL CONTINUE TO MONITOR.
--- NOTE | 2018-12-09 07:00 | NUR ---
SHIFT CHANGE REPORT, PT SLEEPING SOUNDLY, AROUSED WITH TACTILE AND VERBAL STIMULATION, ORIENTED, NO C/O DISCOMFORT AT THIS TIME, TELE MONITOR IN PLACE, IVF INFUSING TO SITE IN RIGHT FOOT, CALL GÓMEZ IN REACH.
--- NOTE | 2018-12-09 12:01 | NUR ---
ASSISTED UP TO RECLINER, NAUSEA CONCERNS ADDRESSED, CLEAR LIQUID MEAL OFFERED, WILL CONTINUE TO MONITOR.
--- NOTE | 2018-12-09 20:00 | NUR ---
PATIENT COMING OUT OF THE BR-STATES THAT HE CONT TO HAVE LOOSE BM'S. PATIENT ASSISTED TO BED. ALERT AND ORIENTEDX3. PATIENT WITH ABD DISTENSION-BS+. INCISION LINE IS EQUIPMENT OPERATOR WITH FRANKLYN IN PLACE. REDNESS NOTED AROUND STAPLE SITES. PATIENT TAKING ONLY CLEAR LIQUIDS AT THIS TIME. PATIENT WITH IV SITE TO RAC WITH IVF NS PATENT AND INFUSING AT 100CC/HR. SITE APPEARS HEALTHY AT THIS TIME. TELE MONITOR IN PLACE. SAFETY PRECAUTIONS REINFORCED. CALL LIGHT IN REACH. WILL CONT TO MONITOR.
[2018-12-10 00:11] VITALS: BP 112/73
--- NOTE | 2018-12-10 00:16 | NUR ---
PATIENT POSITIONED ON LEFT SIDE-APPEARS SLEEPING WITH EYES CLOSED. TELE MONITOR IN PLACE. IVF PATENT AND INFUSING VIA RIGHT AC SITE AT 100CC/HR. APPEARS HEALTHY AT THIS TIME. CALL LIGHT IN REACH. WILL CONT TO MONITOR.
--- NOTE | 2018-12-10 01:15 | NUR ---
RECIEVED CALL FROM ER STATING THAT PATIENT HR-120'S-130'S. PATIENT MEDICATED WITH LOPRESSOR 5MG IVP ORDERED FOR TACHYCARDIA. PATIENT RESTING IN BED-C/O ABD PAIN-DOESN'T WANT ANY DILAUDID AT T HIS TIME. TYLENOL WAS NOT VERY EFFECTIVE WHEN GIVEN EARLIER. VOIDED 150CC IN URINAL BUT ALSO HAD SPILLAGE ON THE FLOOR. SAFETY PRECAUTIONS REINFORCED. CALL LIGHT IN REACH. WILL CONT TO MONITOR.
[2018-12-10 04:10] VITALS: BP 103/70
--- NOTE | 2018-12-10 04:17 | NUR ---
PATIENT POSITIONED ON RIGHT SIDE WITH EYES CLOSED. RESP ARE EVEN AND UNLABORED. TELE MONITOR IN PLACE. IVF NS PATENT AND INFUSING AT 100CC/HR VIA RAC SITE. CALL LIGHT IN REACH. WILL CONT TO MONITOR.
[2018-12-10 05:21] LABS: HEMATOCRIT 36.3 % (39.0-50.0); HEMOGLOBIN 11.5 g/dl (14.0-18.0); IMMATURE GRANULOCYTES 0.5 % (0.0-5.0); MEAN CELL VOLUME 94.5 fL CALC (80.0-100.0); MEAN CORPUSCULAR HGB 29.9 pG CALC (26.0-32.0); MEAN CORPUSCULAR HGB CONC 31.7 g/L CALC (32.0-36.0); NEUT# 9.31 thou/uL (1.82-7.42); RED BLOOD COUNT 3.84 mill/uL (4.70-6.10); RED CELL DISTRI WIDTH 15.2 % (11.5-15.5)
[2018-12-10 05:32] LABS: INTERNATIONAL NORMALIZED RATIO 1.2 RATIO (0.7-1.3); PROTHROMBIN TIME 12.4 SECONDS (9.0-12.5)
[2018-12-10 05:38] LABS: ANION GAP 11 (6-22 (CALC)); BUN 9 mg/dL (9-20); BUN/CREATININE RATIO 14 (12-20 (CALC)); CARBON DIOXIDE 27 mmol/l (22-30); CHLORIDE 106 mmol/l (95-108); CREATININE 0.6 mg/dL (0.7-1.3); GFR > 60 ML/MIN (>=60 (CALC)); GFR FOR AFR.AMER. > 60 ML/MIN (>=60 (CALC)); MAGNESIUM 2.1 mg/dL (1.6-2.3); POTASSIUM 4.2 mmol/l (3.5-5.1); SODIUM 140 mmol/l (137-146)
[2018-12-10 07:12] VITALS: BP 113/83
--- NOTE | 2018-12-10 08:46 | NUR ---
ASSESSMENT DONE. PT IS A&O X3. STAND BY ASSIST TO THE BATHROOM BY SPAR CAP BEVELER. PT STATED PAIN IN ABD 10/07. MEDICATED PT WITH LORTAB SEE EMAR. IVF INFUSING WELL. INCISION IN ABD WITH FRANKLYN IN PLACE. REDNESS NOTED AROUND FRANKLYN. O2 AT 2L VIA NC. TELE IN PLACE. PT STATED HE JUST WANTS TO REST. PT DENIES ANY OTHER NEEDS AT THIS TIME. CALL LIGHT IN REACH.
[2018-12-10 11:03] VITALS: BP 113/73
--- NOTE | 2018-12-10 11:10 | NUR ---
WATER TAXI OPERATOR ASSISTED PT TO SIT IN THE RECLINER. PT STATED PAIN IS LESS 2/10 IN ABD. ENCOURAGE PT TO EAT HIS LUNCH WHEN IT COMES. PT VERBALIZED UNDERSTANDING. PT DENIES NEEDS AT THIS TIME. CALL LIGHT IN REACH.
--- NOTE | 2018-12-10 13:03 | NUR ---
PT AMBULATED IN THE HALLWAYS WITH PIECE DYE WORKER WITH A SLOW AND STEADY GAIT.
--- NOTE | 2018-12-10 16:00 | NUR ---
PT IS RESTING IN BED WITH NO S/S OF DISTRESS. PT STATED THAT PAIN MEDICATION HAS HELPED . PT STATED NO PAIN RIGHT NOW. PT STATED HE JUST WANTS TO REST. CALL LIGHT IN REACH.
[2018-12-10 16:38] VITALS: BP 115/77
--- NOTE | 2018-12-10 19:21 | NUR ---
PATIENT RESTING IN BED AT THIS TIME-AWAKE ALERT AND ORIENTEDX3. PATIENT STATES THAT HE IS FEELING MUCH BETTER TODAY. PATIENT HAS BEEN STARTED ON LORTAB FOR PAIN PRN WITH GOOD EFFECT. ABD REMAINS DISTENDED WITH ACTIVE BS-CONT TO HAVE BM'S TODAY. FRANKLYN TO ABD REMAIN IN PLACE WITH REDNESS NOTED AROUND FRANKLYN. VOIDING QS YELLOW URINE IN URINAL. LUNGS DIMINISHED-ENCOURAGED USE OF IS Q1H WHILE AWAKE. DEMONSTRATES ABILITY TO USE DEVICE PROPERLY. NO PERIPERAL EDEMA NOTED WITH PEDAL PULSES PALPABLE. SAFETY PRECAUTIONS REINFORCED. CALL LIGHT IN REACH. WILL CONT TO MONITOR.
[2018-12-10 19:30] VITALS: BP 118/77
--- NOTE | 2018-12-10 20:45 | NUR ---
PATIENT RESTING IN BED WATCHING TV-PATIENT MEDICATED WITH LORTAB FOR ABD PAIN-7/10 ON PAIN SCALE. PATIENT WAS INSTRUCTED REGUARDING USE OF SNUFF OR CHEWING TABACCO-PROHIBITED IN HOSPITAL. VERBALIZING UNDERSTANDING. SAFETY PRECAUTIONS REINFORCED. CALL LIGHT IN REACH. WILL CONT TO MONITOR.
[2018-12-11] VITALS (7 sets, daily range): BP systolic 110–137; BP diastolic 71–94
--- NOTE | 2018-12-11 00:19 | NUR ---
RECIEVED CALL FROM ER THAT PATIENT HR UP IN 180'S-RESPONDED TO PATIENT ROOM AND FOUND PATIENT STANDING AT BEDSIDE VOIDING IN URINAL-VOIDED 200CC OF YELLOW URINE. BACK IN BED. PATIENT RATE BACK DOWN IN 90'S AT THAT TIME. PATIENT WITH NO COMPLAINTS AT THIS TIME. CALL LIGHT IN REACH. WILL CONT TO MONITOR.
--- NOTE | 2018-12-11 02:38 | NUR ---
PATIENT VOIDED 200CC OF YELLOW URINE IN URINAL. TELE MONITOR IN PLACE. IVF NS PATENT AND INFUSING VIA RIGHT AC SITE AT 100CC/HR. SITE REMAINS HEALTHY. CALL LIGHT IN REACH. WILL CONT TO MONITOR.
--- NOTE | 2018-12-11 04:00 | NUR ---
PATIENT APPEARS SLEEPING AT THIS TIME-POSITIONED ON RIGHT SIDE WITH EYES CLOSED. RESP ARE EVEN AND UNLABORED. TELE MONITOR IN PLACE. IVF NS PATENT AND INFUSING VIA RIGHT AC SITE. CALL LIGHT IN REACH.WILL CONT TO MONITOR.
--- NOTE | 2018-12-11 07:20 | NUR ---
REPORT RECEIVED FROM BENJI BLEDSOE;PT APPEARS TO BE SLEEPING IN SUPINE POSITION;NO S/S OF DISTRESS NOTED;RESPIRATIONS APPEAR EVEN AND UNLABORED ON RA;IV FLUIDS INFUSING WITH EASE PER ORDER;TELE MONITORING IN PLACE;ACCUCHECK 87, NO COVERAGE NEEDED;FALL PRECAUTIONS IN PLACE WITH BED IN THE LOWEST POSITION AND CALL LIGHT IN REACH;WILL CONTINUE TO MONITOR
--- NOTE | 2018-12-11 07:55 | NUR ---
PT RESTING AT BEDSIDE EATING BREAKFAST,A&O X3;VS OBTAINED AND ASSESSMENT COMPLETED;PT DENIES ANY CURRENT PAIN BUT DOES REPORT NAUSEA, PT PREVIOUSLY MEDICATED WITH PRN ZOFRAN ON NIGHTSHIFT;EMESIS BAGS PROVIDED;PAIN SCALE AND REPORTING EDUCATED;RESPIRATIONS EVEN AND UNLABORED ON RA, CLEAR/DIMINISHED LUNG SOUNDS;ABDOMEN DISTENDED/FIRM ON PALPATION AND ACTIVE IN ALL 4 QUADRANTS;MIDLINE INCISION TO ABDOMEN PATENT WITH MULTIPL FRANKLYN NOTED;X3 INCISIONAL AREAS NOTED;WEAK PEDAL PULSES;TELE MONITORING IN PLACE;#20G TO RAC INFUSING NS @ 100ML/HR,SITE APPEARS HEALTHY;PT DENIES ANY ADDITIONAL NEEDS AT THIS TIME AND IS ENCOURAGED TO CALL FOR ASSISTANCE IF NEEDED;CALL LIGHT IN REACH;WILL CONTINUE TO MONITOR
--- NOTE | 2018-12-11 07:55 | NUR ---
PT REPORTS ABDOMINAL PAIN RATING 8/10 ON THE PAIN SCALE AND REQUESTS PAIN MEDICATION, PT MEDICATED WITH PRN LORTAB 5/325MG PO;WILL MONITOR FOR EFFECTIVENESS.
--- NOTE | 2018-12-11 10:27 | NUR ---
KALEY VALLADARES,ANRP AT BEDSIDE DISCUSSING POC.
[2018-12-11 10:37] LABS: INTERNATIONAL NORMALIZED RATIO 1.4 RATIO (0.7-1.3); PROTHROMBIN TIME 14.7 SECONDS (9.0-12.5)
--- NOTE | 2018-12-11 11:26 | NUR ---
AT BEDSIDE DISCUSSING POC.
--- NOTE | 2018-12-11 11:45 | NUR ---
PT OOB RESTING IN RECLINER;RESPIRATIONS EVEN AND UNLABORED ON RA;ACCUCHECK 79, PT PROVIDED ORANGE JUICE AND LUNCH TRAY;FRANKLYN REMOVED PER AND PT TOLERATED WELL;TELE MONITORING IN PLACE;IV FLUIDS INFUSING TO RAC PER ORDER;PT DENIES ANY ADDITIONAL NEEDS AND IS ENCOURAGED TO CALL FOR ASSISTANCE IF NEEDED;CALL LIGHT IN REACH;WILL CONTINUE TO MONITOR
--- NOTE | 2018-12-11 15:15 | NUR ---
PT AMBULATING THE HALLWAY WITH A STEADY GAIT.
--- NOTE | 2018-12-11 16:45 | NUR ---
PT RESTING IN SEMI FOWLERS POSITION;RESPIRATIONS EVEN AND UNLABORED ON RA;PT DENIES ANY CURRENT PAIN OR NEEDS;IV FLUIDS CONTINUE TO INFUSE TO RAC WITH EASE PER ORDER;TELE MONITORING IN PLACE;PT DENIES ANY ADDITIONAL NEEDS AT THIS TIME AND IS ENCOURAGED TO CALL FOR ASSISTANCE IF NEEDED;CALL LIGHT IN REACH;WILL CONTINUE TO MONITOR
--- NOTE | 2018-12-11 17:30 | NUR ---
PT REPORTS ABDOMINAL PAIN RATING 8/10 ON THE PAIN SCALE AND NAUSEA AND REQUESTS MEDICATION, PT TO BE MEDICATED WITH PRN LORTAB 5/325 MG PO AND ZOFRAN 4MG IVP;WILL CONTINUE TO MONITOR FOR EFFECTIVENESS
--- NOTE | 2018-12-11 17:46 | NUR ---
PT VOMITED 400CC OF GREEN/YELLOW EMESIS,PT REPORTS RELIEF AFTER EMESIS;EMESIS BAGS PROVIDED;WILL CONTINUE TO MONITOR
--- NOTE | 2018-12-11 19:31 | NUR ---
PATIENT RESTING IN BED WATCHING TV. AWAKE ALERT AND ORIENTEDX3. PATIENT WITH C/O STILL HAVING EPISODES OF NAUSEA/VOMITTING JOANNE AFTER EATING. ABD REMAINS DISTEDED WITH BS+. STATES THAT HE CONT TO HAVE LOOSE BROWN STOOLS. FRANKLYN HAVE BEEN REMOVED FROM ABD TODAY. SOME REDNESS REMAINS AROUND OLD FRANKLYN SITES. VOIDING QS IN URINAL. TELE MONITOR IN PLACE. IV SITE TO RIGHT AC WITH IVF NS PATENT AND INFUSING AT 100CC/HR. SAFETY PRECAUTIONS REINFORCED. CALL LIGHT IN REACH. WILL CONT TO MONITOR.
--- NOTE | 2018-12-11 23:20 | NUR ---
PATIENT RESTING IN BED AT THIS TIME-C/O ABD PAIN-8/10 ON PAIN SCALE. PATIENT MEDICATED WITH LORTAB 5/325MG PO FOR PAIN. ZOSYN HUNG ORDERED VIA RIGHT AC SITE. SAFETY PRECAUTIONS REINFORCED. CALL LIGHT IN REACH. WILL CONT TO NICHOLAS.
[2018-12-12] VITALS (8 sets, daily range): BP systolic 112–135; BP diastolic 73–89
--- NOTE | 2018-12-12 01:21 | NUR ---
RECIEVING MULTIPLE CALLS THOUGHOUT THE NIGHT FROM [facility] IN ER THAT PATIENT CONT TO HAVE FREQUENT EPISODES OF AFIB RVR WHENEVER PATIENT IS UP WITH ACTIVITY. PATIENT IS ASYMPTOMATIC-DENIES ANY CHEST PAIN, PALPATATIONS DURING THESE EPISODES. PATIENT DOES HAVE EXHERTIONAL SOB. THESE EPISODES ARE UNSUSTAINED FOR ANY LENGTH OF TIME AND RESOLVE ON THEIR OWN. WILL CONT TO MONITOR.
--- NOTE | 2018-12-12 03:15 | NUR ---
RECIEVED CALL FROM ER-PATIENT AGAIN WITH [id number]. RESPONDED TO ROOM. PATIENT FOUND IN BR WITH DOOR LOCKED. PATIENT ASSISTED OOB TO BED-STILL UNSTEADY ON HIS FEET. PATIENT THEN BECAME NAUSEATED WITH DRY HEAVES. PATIENT WAS MEDICATED FOR ELEVATED HR WITH LOPRESSOR 5MG IVP AND FOR NAUSEA WITH ZOFRAN 4MG IVP. IVF NS PATENT AND INFUSING AT 100CC/HR. TELE MONITOR REAPPLIED. FOUND STYROFOAM CUP WITH TOP ON IT AT BEDSIDE-TOOK TOP OFF AND FOUND SNFF, CHEWING TOBACCO IN CUP. ADDRESSED THE DANGER OF USING THIS HERE IN THE HOSPITAL. PATIENT ADMITTED TO USING IT AND STATES THATHE WILL NOT DO IT AGAIN. NOT ONLY IS DANGEROUS BUT AGAINST HOSPITAL POLICY. BACK IN BED. CALL LIGHT IN REACH. WILL CONT TO MONITOR.
[2018-12-12 05:21] LABS: INTERNATIONAL NORMALIZED RATIO 1.5 RATIO (0.7-1.3); PROTHROMBIN TIME 15.1 SECONDS (9.0-12.5)
--- NOTE | 2018-12-12 07:15 | NUR ---
PT REPORT RECIEVED FROM BENJI BLEDSOE. PT SLEEPING. NO S/S OF DISTRESS. CALL LIGHT IN REACH. WILL CONTINUE TO MONITOR.
--- NOTE | 2018-12-12 07:43 | NUR ---
PT A/O X3. RESP EVEN AND UNLABORED. LUNG SOUNDS CLEAR. TELE IN PLACE. BOWEL SOUNDS ACTIVE X4. PT C/O ACHING ABDOMINAL PAIN; 5 OUT OF 10 ON PAIN SCALE. MEDICATED W/ ONE LORTAB 5/325. REPOSITIONED FOR COMFORT. ABDOMEN DISTENED AND FIRM. TENDERNESS NOTED TO ALL 4 QUADRANTS. MIDLINE INCISION; REDNESS NOTED. ONE PUNCTURE TO RT AND LT SIDE OF ABDOMEN W/ REDNESS NOTED. NO DRAINAGE OR ODOR. STRONG RADIAL AND PEDAL PULSES. #20 RAC NS @100. SITE APPEARS HEALTHY. POC DISCUSSED. SAFETY PRECAUTIONS IN PLACE. CALL LIGHT IN REACH. WILL CONTINUE TO MONITOR.
[2018-12-12 10:35] LABS: HEMOGLOBIN 12.1 g/dl (14.0-18.0); IMMATURE GRANULOCYTES 0.5 % (0.0-5.0); MEAN CELL VOLUME 94.3 fL CALC (80.0-100.0); MEAN CORPUSCULAR HGB CONC 31.8 g/L CALC (32.0-36.0); NEUT# 8.49 thou/uL (1.82-7.42); RED BLOOD COUNT 4.03 mill/uL (4.70-6.10); RED CELL DISTRI WIDTH 15.4 % (11.5-15.5)
[2018-12-12 10:52] LABS: ANION GAP 15 (6-22 (CALC)); BUN 5 mg/dL (9-20); BUN/CREATININE RATIO 7 (12-20 (CALC)); CARBON DIOXIDE 25 mmol/l (22-30); CHLORIDE 102 mmol/l (95-108); CREATININE 0.6 mg/dL (0.7-1.3); GFR > 60 ML/MIN (>=60 (CALC)); GFR FOR AFR.AMER. > 60 ML/MIN (>=60 (CALC)); POTASSIUM 4.4 mmol/l (3.5-5.1); SODIUM 137 mmol/l (137-146)
--- NOTE | 2018-12-12 11:45 | NUR ---
PT SLEEPING. NO C/O PAIN OR NEEDS. CALL LIGHT IN REACH. WILL CONTINUE TO MONITOR.
--- NOTE | 2018-12-12 15:03 | NUR ---
PT AMBULATING IN HALLS W/ STEADY GAIT
--- NOTE | 2018-12-12 19:51 | NUR ---
RESPONDED TO PATIENT ROOM AFTER PL[employer] [facility]ER WAS CALLED BY ER STAFF. PATIEN FOUND TO BE GETTING BACK INTO BED AFTER STANDING TO VOID IN THE URINAL CLEAR YELLOW URINE. ER STAFF STATE THAT PATIENT WAS A-FIB RVR WITH RATE UP TO 200. PATIENT IS ASYMPTOMATIC-DENIES ANY PAIN OR PALPATATIONS. SKIN IS WARM AND DRY. SLIGHT SOB NOTED AFTER ACTIVITY. VS WERE [id number]/75, PULSE 76, O2 SAT-96%. DR. DOSHI WAS CALLED WITH UPDATE-NO NEW ORDERS RECIEVED AT THIS TIME. CONT TELE ORDERED. NO NEW MED ORDERS RECIEVED. STATES THAT HE WILL CALL THE ER. PATIENT MEDICATED WITH LORTAB 5/325MG PO FOR 8/10 PAIN SCALE. ABD REMAINS DISTENDED BUT NOT FIRM LAST COUPLE NIGHTS. ABD INCISION INTACT WITH SLIGHT REDNESS AROUND OLD STAPLE SITES. FRANKLYN WERE REMOOVED YESTERDAY. TELE MONITOR REMAINS IN PLACE. SALINE LOCK TO RIGHT AC INTACT AND REMAINS HEALTHY AT THIS TIME. SAFETY PRECAUTIONS REINFORCED. REINFOCED NO TOBACCO POLICY WHILE HERE IN HOSPITAL. CALL LIGHT IN REACH. WILL CONT TO MONITOR.
--- NOTE | 2018-12-12 21:10 | NUR ---
RECEIVED CALL FROM ER THAT PATIENT WAS AGAIN A-FIB RVR [id number]. RESPONDED TO ROOM IMMEDIATELY AND PATIENT VS TAKEN-HR-82, BP-124/79, O2 SATS-95%. PATIENT AGAIN IS ASYMPTOMATIC-WAS UP IN THE ROOM TO VOID AGAIN. NO CHEST PAIN, NO PALPATATIONS. SKIN REMAINS WARM AND DRY. DR. DOSHI CALLED AGAIN- RECIEVED ORDER FOR DO NOT CALL FOR ASYMPTOMATIC UNSUSTAINED RVR. WILL CONT TO MONITOR.
--- NOTE | 2018-12-12 21:45 | NUR ---
RECIEVED NEW ORDER TO TRANSFER PATIENT TO ICU-PATIENT NOTIFIED OF IMPENDING TRANSFER. PATIENT MEDICATED WITH REGLAN ORDERED. GIVEN ADDITION DOSE OF LOPRESSOR 25 TO EQUAL TOTAL OF LOPRESSOR 75MG TONIGHT. PATIENT BS TONIGHT WAS 92 AND NO COVERAGE NEEDED. PROVIDED WITH HS SNACK. WILL CONT TO MONITOR.
--- NOTE | 2018-12-12 22:10 | NUR ---
REPORT CALLED TO JON LEBLANC IN ICU-PATIENT WILL BE GOING TO ICU-8. PATIENT AND BELONGINGS TRANSFERRED TO ICU-8 VIA WHEELCHAIR.
--- NOTE | 2018-12-12 22:15 | NUR ---
PT. ARRIVES VIA WHEELCHAIR. NO DISTRESS. AMBULATORY WITH STEADY GAIT FROM WHEELCHAIR TO ICU STRETCHER. PLACED ON MONITOR. RATE CONTROLLED A-FIB IN THE 80-90'S. PT. DENIES ANY COMPLAINTS. STATES WITH NO ABDOMINAL PAIN AT THIS TIME. BP/HR STABLE. DENIES COMPLAINTS OF SOB OR OTHER NEEDS. PROVIDED WITH WATER, URINAL AND INTRODUCED TO NURSES AND CALL LIGHT SYSTEM. NO DISTRESS.
--- NOTE | 2018-12-12 23:57 | NUR ---
PT. REMAINS STABLE ON THE MONITOR. REMAINS RATE CONTROLLED. RESTING ON LT. SIDE IN NO DISTRESS. CALL LIGHT REMAINS WITHIN REACH. WILL CONTINUE TO MONITOR.
[2018-12-13] VITALS (10 sets, daily range): BP systolic 99–136; BP diastolic 62–89
--- NOTE | 2018-12-13 00:54 | NUR ---
PT. ASSISTED TO RESTROOM 1 NURSE ASSIST. MILDLY UNSTEADY AT THIS TIME. SKIN REMAINS WARM AND DRY. NO DISTRESS. A-FEBRILE. SCANT BM AND URINE OUT AT THIS TIME.
--- NOTE | 2018-12-13 03:14 | NUR ---
PT. RESTING IN BED WITH EYES CLOSED IN NO DISTRESS. RESPS EVEN AND UNALBORED. CONTINUES IN A-FIB WITH RATE IN THE 70'S CONTROLLED. DENIES COMPLAINTS OR NEEDS. CALL LIGHT REMAINS WIHTIN REACH. WILL CONTINUE TO MONITOR.
--- NOTE | 2018-12-13 04:05 | NUR ---
PT. C/O PAIN AT THIS TIME. ENCOURAGED TO REPOSITION HE IS NOT DUE FOR REPEAT ADMINISTRATION OF PAIN MEDICATION UNTIL 7:30 AM. HR REMAINS STABLE RATE CONTROLLED IN THE 70-90'S. NO DISTRESS. CALL LIGHT REMAINS WITHIN REACH.
--- NOTE | 2018-12-13 07:20 | NUR ---
pt resting in bed with eyes closed; easily aroused; offers complaints of pain rating 47/10 upon awakening; will medicate; no n/v noted; pt offers no additional complaints; assessment completed at this time; pt alert and oriented; resp even and unlabored; lungs clear; skin color wnl; ra; hr irreg; strong pulses; no edema noted; afib on monitor; pt denies cp, palpitations, dizziness with tachycardia on exertion; abd distended with bs present; no bm noted per copywriter; midline incision well approx with scaly skin noted at incision line; slight redness/irritation noted at incision line; #20 intact to rac; no redness or edema noted at site; plan of care/ am meds explained; pt assited to recliner for breakfast; call light within reach; will continue to monitor
--- NOTE | 2018-12-13 08:05 | NUR ---
awake in recliner; offers no complaints; afib 80s on monitor; iv intact; deny needs; call light within reach; will continue to monitor
--- NOTE | 2018-12-13 09:15 | NUR ---
Dr Padilla present at bedside to assess pt and discuss plan of care
--- NOTE | 2018-12-13 10:01 | NUR ---
pt resting in bed with eyes closed; no apparent distress noted; resp even and unlabored; afib 84 on monitor; consult for Dr Orona called to Kwasi; iv intact; call light within reach; will continue to monitor
[2018-12-13 10:02] LABS: INTERNATIONAL NORMALIZED RATIO 1.4 RATIO (0.7-1.3); PROTHROMBIN TIME 14.8 SECONDS (9.0-12.5)
--- NOTE | 2018-12-13 11:30 | NUR ---
awake; up to chair for lunch; pt offers no complaints; afib 120 with exertion; will continue to monitor
--- NOTE | 2018-12-13 12:01 | NUR ---
awake in recliner; no apparent distress noted; pt offers no complaints; iv intact; afib 91 on monitor; call light within reach; will continue to monitor
--- NOTE | 2018-12-13 12:10 | NUR ---
cardiology Truong Reid APRN present at bedside to assess pt and discuss plan of care; awaiting cardiology records from [facility]
--- NOTE | 2018-12-13 12:36 | NUR ---
Dr Carrera present at bedside to assess pt; pt has been cleared from a surgical stand point if discharged
--- NOTE | 2018-12-13 14:00 | NUR ---
awake in bed; no apparent distress noted; pt prev medicated with lortab; afib on monitor; iv intact; no redness or edema noted at site; call light within reach; will continue to monitor
--- NOTE | 2018-12-13 15:56 | NUR ---
pt awake in bed; no apparent distress noted; pt offers no complaints; iv intact and patent; afib on monitor; ra; no complaints of pain voiced at this time; call light within reach; will continue to monitor
--- NOTE | 2018-12-13 17:25 | NUR ---
up to recliner for dinner
--- NOTE | 2018-12-13 17:58 | NUR ---
afib 140s with activity
--- NOTE | 2018-12-13 18:03 | NUR ---
awake in bed; no apparent distress noted; pt offers no complaints; afib 110s on monitor; iv intact and patent; call light within reach;
--- NOTE | 2018-12-13 19:15 | NUR ---
REPORT RECEIVED FROM BENJI TRUJILLO. PT RESTING ON LEFT SIDE; ALERT AND ORIENTED. C/O MILD ABDOMINAL PAIN. RESPIRATIONS EVEN AND UNLABORED ON ROOM AIR. PT REQUESTING TABACCO. PLAN OF CARE REVIEWED. PT ENCOURAGED TO VERBALIZE CONCERNS. STATES UNDERSTANDING. SAFETY MEASURES IN PLACE. CALL LIGHT WITHIN REACH.
--- NOTE | 2018-12-13 21:27 | NUR ---
HEART RATE INCREASED INTO THE 160'S WHILE PT STOOD AT BEDSIDE TO VOID; RETURNED TO 110S-120'S AT REST. HS MEDICATIONS GIVEN AT THIS TIME INCLUDING SCHEDULED LOPRESSOR. PT REMAINS AFIB ON TELEMETRY.
--- NOTE | 2018-12-13 21:53 | NUR ---
LORTAB GIVEN FOR 7/10 ABDOMAINAL PAIN WITH GOOD EFFECT. PT HAS LIMITED IV ACCESS; DRESSING CHANGED TO CURRENT SITE TO [facility]; FLUSHES WELL WITH GOOD BLOOD RETURN.
--- NOTE | 2018-12-13 23:34 | NUR ---
PT ASLEEP WITH NO SIGNS OF DISTRESS. RESPIRATIONS EVEN AND UNLABORED ON ROOM AIR. SAFETY MEASURES IN PLACE. CALL LIGHT WITHIN REACH.
[2018-12-14] VITALS: BP 116/85
--- NOTE | 2018-12-14 00:44 | NUR ---
PT AMBULATED INTO BATHROOM FOR SMALL BOWEL MOVEMENT; VOIDING CLEAR DARK YELLOW URINE IN URINAL. NOW SITTING UP IN CHAIR. AFIB HR 90S-100S.
[2018-12-14 02:00] VITALS: BP 94/66
[2018-12-14 04:00] VITALS: BP 112/71
--- NOTE | 2018-12-14 04:33 | NUR ---
PT USED CALL LIGHT TO REQUEST PAIN MEDICATION FOR ABDOMINAL PAIN 09/06; LORTAB GIVEN WITH GOOD EFFECT. PT NOW RESTING IN BED SEMI FOWLERS ON HIS CELL PHONE AND WATCHING TV. SAFETY MEASURES IN PLACE. CALL LIGHT WITHIN REACH.
--- NOTE | 2018-12-14 05:02 | NUR ---
LAB AT BEDSIDE.
[2018-12-14 05:35] LABS: INTERNATIONAL NORMALIZED RATIO 1.5 RATIO (0.7-1.3); PROTHROMBIN TIME 15.4 SECONDS (9.0-12.5)
--- NOTE | 2018-12-14 07:22 | NUR ---
REPORT RECEIVED FROM BENJI OCONNELL. PT SUPINE IN BED. SLEEPING. CALL LIGHT WITHIN REACH.
--- NOTE | 2018-12-14 07:36 | NUR ---
PT AWAKENED FOR BREAKFAST. BLOOD GLUCOSE 113. PT TRANSFERED BY SELF TO CHAIR AT BEDSIDE. HR 155 BPM AT HIGHEST, UNSUSTAINED, WITH ACTIVITY. NO DISTRESS NOTED. NO SOB, DENIES PAIN. HR 110-120 NOW WHILE SITTING IN CHAIR. AFIB ON TELE. O2 94% ON RA. #20 RAC, NO S/S INFECTION. INFORMED OF SITE EXPIRATION PER HOSPITAL POLICY, PT REQUESTS TO SEE DR BEFORE CHANGING SITE. PT STATES ANTICIPATION OF DISCHARGE. DISCHARGE PROCESS REVIEWED. CALL LIGHT REVIEWED AND IN REACH. REPORTING OF CONCERNS ENCOURAGED. PT STATES UNDERSTANDING.
[2018-12-14 08:00] VITALS: BP 119/77
[2018-12-14 09:01] VITALS: BP 119/77
--- NOTE | 2018-12-14 10:00 | NUR ---
DR. DOSHI IN TO SEE PT. DISCHARGE HOME DISCUSSED AND AGREED UPON BY BOTH. PT REQUEST TO REMOVE LEADS/IV IN ORDER TO GET DRESSED NOW.
[2018-12-14] MEDS ORDERED: ATORVASTATIN CA40 MG PO (10:09)
[2018-12-14] MEDS ORDERED: PANTOPRAZOLE SO40 M1 PO (10:09)
[2018-12-14] MEDS ORDERED: DIGITEK0.25 M1 PO (10:09)
[2018-12-14] MEDS ORDERED: LOPRESSOR 550 MG/TAB PO (10:09)
[2018-12-14] MEDS ORDERED: FLUOXETINE20 MG PO (10:09)
[2018-12-14] MEDS ORDERED: PERCOCET 5/325M1 TAB PO (10:09)
[2018-12-14] MEDS ORDERED: AMITRIPTYLIN25 MG PO (10:09)
--- NOTE | 2018-12-14 10:55 | NUR ---
Discharge instructions given. Patient verbalizes understanding of same. Discharged in stable condition via Wheelchair to Home with family. All belongings sent with pt.
== END 2018-12-14 11:00 | disposition home or self-care (01) | DRG 393 ==
LOC: ED 05:03 → ED-I 08:34 → ED 08:58 → ICU 08:59 → MS2 08:59 → ICU 09:45 → MS2 12-08 10:40 → ICU 12-12 22:15
PROVIDERS: Nurse Practitioner Family; ADMIT Internal Medicine; ATTEND Internal Medicine
PROC: 0J983ZZ Drainage of Abdomen Subcutaneous Tissue and Fascia, Percutaneous Approach (ICD-10-PCS; principal; 2018-12-06)
DX: K91.89 Other postprocedural complications and disorders of digestive system (principal); G92 Toxic encephalopathy; K56.7 Ileus, unspecified; L76.32 Postprocedural hematoma of skin and subcutaneous tissue following other procedure; I48.20 Chronic atrial fibrillation, unspecified; I11.0 Hypertensive heart disease with heart failure; I50.9 Heart failure, unspecified; E11.9 Type 2 diabetes mellitus without complications; J44.9 Chronic obstructive pulmonary disease, unspecified; F17.220 Nicotine dependence, chewing tobacco, uncomplicated; T40.2X5A Adverse effect of other opioids, initial encounter; I25.2 Old myocardial infarction; Y84.8 Other medical procedures as the cause of abnormal reaction of the patient, or of later complication, without mention of misadventure at the time of the procedure; Z99.81 Dependence on supplemental oxygen; Z79.01 Long term (current) use of anticoagulants; Z98.890 Other specified postprocedural states; Z79.84 Long term (current) use of oral hypoglycemic drugs
CPT/HCPCS: J1650; S0164

== ENCOUNTER 2019-10-30 16:38 | Emergency (ER) | payer MEDICARE ==
[~2019-10-30] VITALS: Ht 182.9 cm; Wt 118.1 kg
[~2019-10-30 16:38] MED LIST changes: +DIGITEK0.25 M1 PO; +PANTOPRAZOLE SO40 M1 PO; +WARFARIN5 MG PO
[2019-10-30 17:23] LABS: URINE BILIRUBIN - DIPSTICK NEGATIVE (NEGATIVE); URINE BLOOD DIPSTICK SMALL (NEGATIVE); URINE COLOR YELLOW; URINE GLUCOSE - DIPSTICK NEGATIVE (NEGATIVE); URINE KETONE TRACE mg/dL (NEGATIVE); URINE LEUK ESTERASE NEGATIVE (NEGATIVE); URINE NITRITE - DIPSTICK NEGATIVE (Negative); URINE PROTEIN - DIPSTICK 100 mg/dL (NEG-TRACE); URINE SPECIFIC GRAVITY >=1.030; URINE UROBILINOGEN - DIPSTICK 0.2 E.U./dL (0.2)
[2019-10-30 17:25] LABS: URINE RBC 0-2 RBC/hpf (0-5); URINE WBC 0-2 WBC/hpf (0-5)
[2019-10-30 17:44] LABS: IMMATURE GRANULOCYTES 0.3 % (0.0-5.0); MEAN CELL VOLUME 91.5 fL CALC (80.0-100.0); MEAN CORPUSCULAR HGB CONC 31.7 g/dL CAL (32.0-36.0); NEUT# 4.95 thou/uL (1.82-7.42); RED BLOOD COUNT 5.42 mill/uL (4.70-6.10); RED CELL DISTRI WIDTH 16.5 % (11.5-15.5)
[2019-10-30 17:46] LABS: HEMATOCRIT 49.6 % (39.0-50.0); HEMOGLOBIN 15.7 g/dl (14.0-18.0)
[2019-10-30 17:58] LABS: ALBUMIN 3.9 g/dL (3.2-5.0); ALKALINE PHOSPHATASE 93 u/l (38-126); ANION GAP 11 (6-22 (CALC)); BILIRUBIN, TOTAL 0.6 mg/dL (0.0-1.4); BUN 9 mg/dL (9-20); BUN/CREATININE RATIO 12 (12-20 (CALC)); CARBON DIOXIDE 27 mmol/l (22-30); CHLORIDE 101 mmol/l (95-108); CREATININE 0.8 mg/dL (0.7-1.3); GFR > 60 ML/MIN (>=60 (CALC)); GFR FOR AFR.AMER. > 60 ML/MIN (>=60 (CALC)); LIPASE 99 u/l (23-300); POTASSIUM 3.9 mmol/l (3.5-5.1); SGOT/AST 30 u/l (17-59); SODIUM 136 mmol/l (137-146); TOTAL PROTEIN 7.1 g/dL (6.3-8.2)
[2019-10-30] MEDS ORDERED: CYCLOBENZAPR5 MG PO (19:02)
[2019-10-30] MEDS ORDERED: HYDROCO/APAP1 TA9 PO (19:02)
[2019-10-30 19:25] VITALS: BP 131/85
== END 2019-10-30 19:25 | disposition home or self-care (01) ==
LOC: ED 16:38
PROVIDERS: Family Medicine
DX: M54.5 Low back pain (principal); I11.0 Hypertensive heart disease with heart failure; I50.9 Heart failure, unspecified; I48.91 Unspecified atrial fibrillation; E11.9 Type 2 diabetes mellitus without complications; I25.10 Atherosclerotic heart disease of native coronary artery without angina pectoris; I25.2 Old myocardial infarction; F17.200 Nicotine dependence, unspecified, uncomplicated; Z87.442 Personal history of urinary calculi

== ENCOUNTER 2020-01-08 14:09 | Emergency (ER) | payer MEDICARE ==
[~2020-01-08] VITALS: Ht 182.9 cm; Wt 100.0 kg
[~2020-01-08 14:09] MED LIST changes: +CYCLOBENZAPR5 MG PO; +HYDROCO/APAP1 TA9 PO
[2020-01-08] MEDS ORDERED: METFORMIN500 M2 PO (16:21)
[2020-01-08] MEDS ORDERED: TRAMADOL HYDROC50 M1 PO (16:45)
[2020-01-08 17:10] VITALS: BP 119/95
== END 2020-01-08 17:10 | disposition home or self-care (01) ==
LOC: ED 14:09
DX: M25.512 Pain in left shoulder (principal); M25.562 Pain in left knee; S90.112A Contusion of left great toe without damage to nail, initial encounter; S00.81XA Abrasion of other part of head, initial encounter; E11.9 Type 2 diabetes mellitus without complications; I11.0 Hypertensive heart disease with heart failure; I50.9 Heart failure, unspecified; I48.91 Unspecified atrial fibrillation; I25.2 Old myocardial infarction; F17.200 Nicotine dependence, unspecified, uncomplicated; W19.XXXA Unspecified fall, initial encounter; Z79.84 Long term (current) use of oral hypoglycemic drugs